=== PATIENT | female | born 1950 | race Caucasian/White ===

== ENCOUNTER 2024-01-16 05:59 | Day surgery (SDC) | payer OTHER ==
[~2024-01-16 05:59] MED LIST: CIPRO500 MG PO; HYZAAR 100/25 T1 TAB; MUSSINEX PO; NEURONTIN300 MG; NORVASC2.5 M1 PO; TENORMIN50 M1 PO
[2024-01-16] MEDS ORDERED: CIPROFLOXACIN IN 5 % DEXTROSE 400 MG/200 ML PIGGYBAG IV ONE ×2 (09:48→12:15)
== END 2024-01-16 18:35 | disposition home or self-care (01) ==
LOC: CIR.AMB 05:59
PROVIDERS: ATTEND Surgery
DX: C50.412 Malignant neoplasm of upper-outer quadrant of left female breast (principal); C77.3 Secondary and unspecified malignant neoplasm of axilla and upper limb lymph nodes; I10 Essential (primary) hypertension; Z88.6 Allergy status to analgesic agent
CPT/HCPCS: 19301; 38525; 19281; A9541; L8699